=== PATIENT | male | born 1985 | race Caucasian/White ===

== ENCOUNTER 2020-10-06 16:30 | Outpatient (CLI) | payer OTHER, SELFPAY | END 2020-10-06 16:31 | disposition home or self-care (01) | LOC: ANHCOVIDVC 16:30 | PROVIDERS: PCP Emergency Medicine | DX: Z23 Encounter for immunization (principal) | CPT/HCPCS: 0001A; 91300 ==

== ENCOUNTER 2020-10-27 16:28 | Outpatient (CLI) | payer OTHER, SELFPAY | END 2020-10-27 16:29 | disposition home or self-care (01) | LOC: ANHCOVIDVC 16:28 | PROVIDERS: PCP Emergency Medicine | DX: Z23 Encounter for immunization (principal) | CPT/HCPCS: 0002A; 91300 ==

== ENCOUNTER 2021-08-18 17:15 | Emergency (ER) | payer OTHER, SELFPAY ==
[2021-08-18 17:21] VITALS: BP 129/81; RESP 16; TEMP 35.6; O2SAT 100
[2021-08-18 17:23] VITALS: BP 129/81; RESP 16; TEMP 35.6; O2SAT 100
--- NOTE | 2021-08-18 17:24 | ED.URI ---
HPI - URI/Sore Throat General Chief Complaint: Upper Respiratory Infection Stated Complaint: SINUS CONGESTION Time Seen by Provider: 08/18/21 17:24 Source: patient, RN notes reviewed and old records reviewed Mode of arrival: ambulatory Limitations: no limitations History of Present Illness HPI Narrative: 36 year old male presents to [facility] with complaints of sinus congestion, drainage, dry cough and some facial pressure and frontal headache for the past 2 days. He states that he had COVID about a month ago and has recovered with no known residual effects., Patient has been COVID vaccinated but has not had his booster. Patient denies any fevers, chills or sweats, he has been taking Flonase and Mago D for his symptoms with no resolution. Patient states that cough has been slightly productive in the morning.Patient has history of past sinus infections requesting Z-pack. MD elicited complaint: sinus pain Pertinent past history: sinusitis Treatments prior to arrival: other (Flonase and Mago D) Related Data Allergies Allergy/AdvReac Type Severity Reaction Status Date / Time No Known Allergies Allergy Unknown Unverified 06/16/20 13:59 Review of Systems Review of Systems: CONSTITUTIONAL: Denies fever, chills, or sweats. EYES: Denies visual changes, redness, or discharge. ENT: Positive rhinorrhea, congestion, no sore throat, or otalgia, facial pressure. CARDIOVASCULAR: Denies chest pain, palpitations, or edema. RESPIRATORY: Positive for cough no dyspnea. GASTROINTESTINAL: Denies abdominal pain, nausea, vomiting, or diarrhea. GENITOURINARY: Denies dysuria or hematuria. SKIN: Denies rash or itching. MUSCULOSKELETAL: Denies back pain, joint pain, or myalgia. NEUROLOGIC: Positive for headache, no numbness, or weakness. PSYCHIATRIC: Denies anxiety or depression. All systems reviewed & are unremarkable except as noted in HPI and below PMFSH Past Medical History Medical History Viral labyrinthitis Family History Family History Mother Family history of Alzheimer's disease, Onset Age: 62 Social History Social History Smoking status: Never smoker Alcohol intake: never Comments At time of signature, agree with nursing past medical, surgical, social and family history. There is no relevant family history pertinent to the presenting complaint Exam Narrative: GENERAL: Well-appearing, well-nourished, and in no acute distress. HEAD: Normocephalic, atraumatic. EYES: PERRLA and EOMI. ENT: Nares mild redness with clear rhinorrhea no epistaxis. Mucous membranes moist.TM's normal with good light reflex, throat red with no exudates or lesions, no tonsil enlargement, post nasal drainage noted. NECK: Supple.no lymphadenopathy CHEST: Clear to auscultation. No respiratory distress.SAO2 100% on room air. HEART: Regular rate and rhythm. No murmur heard. Normal peripheral pulses. ABDOMEN: Soft, nontender, nondistended, normal active bowel sounds. EXTREMITIES: Normal range of motion. No edema. SKIN: Warm, dry, no rash. NEURO: No focal deficits. Alert and oriented x3. Course Course Level of Care: Express Care Visit Vital Signs Vital signs: Vital Signs Temperature 35.6 C L 08/18/21 17:21 Respiratory Rate 16 08/18/21 17:21 Blood Pressure 129/81 08/18/21 17:21 Pulse Oximetry 100 08/18/21 17:21 Temperature 35.6 C L 08/18/21 17:23 Pulse Rate 57 L 08/18/21 17:26 Respiratory Rate 16 08/18/21 17:23 Blood Pressure 129/81 08/18/21 17:23 Pulse Oximetry 100 08/18/21 17:23 MDM - URI/Sore Throat Differential Diagnosis Differential diagnosis: Likely upper respiratory infection, sinusitis (bacterial), viral infection, influenza and pharyngitis Medical Records Attestation: I reviewed the patient's medical records. Critical Care Time Yana
[2021-08-18 17:26] VITALS: PULSE 57
== END 2021-08-18 17:50 | disposition home or self-care (01) ==
PROVIDERS: Emergency Provider Registered Nurse; PCP Emergency Medicine
DX: J32.9 Chronic sinusitis, unspecified (principal); Z86.16 Personal history of COVID-19
CPT/HCPCS: 99213; G0463

== ENCOUNTER 2024-07-05 17:59 | Emergency (ER) | payer OTHER, SELFPAY ==
[2024-07-05] VITALS (7 sets, daily range): BP systolic 122–137; BP diastolic 66–80; PULSE 60–83; RESP 13–18; TEMP 36.2–36.6; O2SAT 99–100
--- NOTE | ~2024-07-05 | US_ITS ---
EXAMINATION: US venous doppler UE RT DATE: 07/05/2024 18:36 INDICATION: Right upper limb pain. TECHNIQUE: Grayscale ultrasound images without and with compression and Doppler ultrasound images of the right upper extremity veins were obtained. COMPARISON: None. FINDINGS: The visualized portions of the right internal jugular vein, subclavian vein, axillary vein, brachial veins, basilic vein, cephalic vein, radial vein, and ulnar vein are patent. IMPRESSION: 1. No deep venous thrombosis. Reviewed, dictated and finalized at location A. DYER
--- NOTE | ~2024-07-05 | CT_ITS ---
EXAMINATION: CTA chest DATE: 07/05/2024 23:17 INDICATION: Right upper extremity pain. Aortic dissection. TECHNIQUE: Computed tomographic angiography (CTA) of the chest was performed with 100 mL Omnipaque-35 0 intravenous contrast. Automated exposure control and iterative reconstruction technique were employ ed. The dose-length product was 403.32 mGy-cm. Maximum intensity projection 3D-reconstructions of the aorta and other arteries were constructed by the technologist on a separate workstation. COMPARISON: None. FINDINGS: A calcified right lung nodule and calcified right hilar lymph nodes are consistent with old granulomatous disease. No pleural effusion. The heart size is normal. No pericardial effusion. The a brianda is normal in caliber. No aneurysm or dissection. There is no significant stenosis of celiac axis , superior mesenteric artery, or the renal arteries. There is mild thoracic spondylosis. IMPRESSION: 1. Normal aorta. Reviewed, dictated and finalized at location A. [employer] IMPRESSION: 1. Normal aorta.
--- NOTE | ~2024-07-05 | CT_ITS ---
EXAMINATION: CTA [facility] DATE: 07/05/2024 23:17 INDICATION: Upper extremity pain. TECHNIQUE: Computed tomographic angiography (CTA) of the bilateral upper extremities was performed wi th 150 mL Omnipaque-350 intravenous contrast. Automated exposure control and iterative reconstruction technique were employed. The dose-length product was 585.52 mGy-cm. Maximum intensity projection 3D- reconstructions of the arteries were created by the technologist on a separate workstation. COMPARISON: None. FINDINGS: RIGHT UPPER EXTREMITY CTA: There is no significant stenosis of the brachiocephalic trunk, subclavian artery, axillary artery, brachial artery, ulnar artery, or radial artery. LEFT UPPER EXTREMITY CTA: There is no significant stenosis of subclavian artery, axillary artery, bra chial artery, radial artery, or ulnar artery. IMPRESSION: 1. No significant arterial occlusive disease. Reviewed, dictated and finalized at location A. [facility]
--- NOTE | 2024-07-05 20:51 | ECG_ITS ---
Test Date: 2024-07-05 22:05:26 Measurements Intervals [place] Rate: 67 P: 7 MD: 167 QRS: -18 QRSD: 89 T: 28 QT: 382 QTc: 404 Interpretive Statements SINUS RHYTHM POSSIBLE RIGHT VENTRICULAR CONDUCTION DELAY [RSR (QR) IN V1/V2] INFERIOR MYOCARDIAL INFARCTION , PROBABLY OLD [40+ ms Q WAVE AND/OR ST/T ABNORMALITY IN II/aVF] No previous ECG available for comparison Electronically Signed On 07-06-2024 18:35:20 [facility] by Barb Banegas M.D.
[2024-07-05 21:31] LABS: Basophils Absolute Auto 0.1 K/mm3 (0.0-0.1); Basophils Percent Auto 0.9 % (0.2-1.2); Eosinophils Absolute Auto 0.2 K/mm3 (0-0.3); Eosinophils Percent Auto 2.4 % (0-4.4); Hemoglobin 14.1 g/dL (14.0-18.0); Immature Granulocyte Absolute 0.02 K/mm3 (0.00-0.031); Immature Granulocyte Percent A 0.2 % (0-0.5); Lymphocytes Percent Auto 24.7 % (18.3-44.2); Mean Corpuscular HGB Conc 34.4 g/dl (32-36); Mean Corpuscular Hemoglobin 31.2 pg (26-34); Mean Corpuscular Volume 90.7 fl (80-100); Mean Platelet Volume 11.1 fl (7.4-10.4); Monocytes Absolute Auto 0.8 K/mm3 (0.1-0.6); Monocytes Percent Auto 8.9 % (2.6-8.5); Neutrophils Absolute Auto 5.6 K/mm3 (1.3-6.7); Neutrophils Percent Auto 62.9 % (45.5-73.1); Platelet Count Result 228 k/mm3 (150-375); Red Blood Count 4.52 M/mm3 (4.6-6.20); Red Cell Distribution Width 12.4 % (11.5-14.5); White Blood Count 8.9 K/mm3 (4.5-10.0)
[2024-07-05 21:42] LABS: Lactic Acid Reflex 0.9 mmol/L (0.7-2.0)
[2024-07-05 21:43] LABS: Alanine Aminotransferase 20 U/L (6-50); Albumin Level 4.2 g/dL (3.5-5.1); Alkaline Phosphatase 52 U/L (38-126); Anion Gap 4 mmol/L (4-12); Aspartate Amino Transferase 21 U/L (17-59); Bilirubin,Total 0.6 mg/dL (0.2-1.3); Blood Urea Nitrogen 11 mg/dL (9-20); Calcium 9.1 mg/dL (8.4-10.2); Carbon Dioxide 27 mmol/L (22-30); Chloride 105 mmol/L (98-107); Creatine Kinase 69 U/L (55-170); Estimated CRCL calculation 89 ml/min; Estimated Glomerular Filt Rate > 60; Glucose 85 mg/dL (65-110); Magnesium 2.1 mg/dL (1.6-2.3); Potassium 3.7 mmol/L (3.4-5.0); Sodium 136 mmol/L (137-145)
[2024-07-05 21:44] LABS: Prothrombin Time 13.4 Seconds (11.1-14.7)
[2024-07-05 21:45] LABS: Partial Thromboplastin Time 29.9 Seconds (22.3-36.8)
[2024-07-05 21:47] LABS: D Dimer < 0.27 ug/mL (<0.48)
[2024-07-05 21:53] LABS: Troponin I < 0.012 ng/mL (0.000-0.034)
--- NOTE | 2024-07-05 21:55 | ED.EXTPRO ---
HPI - Extremity Problem General Chief complaint: Extremity Problem,Nontraumatic Stated complaint: right elbow pain Time Seen by Provider: 07/05/24 20:34 History of Present Illness HPI Narrative: 39-year-old male with a past medical history significant for vertebral artery dissection and previous CVA secondary to above without any residual deficits. Presents to the emergency department today with a chief complaint of pain and paresthesias in his right upper extremity as well as some vague chest discomfort, nauseousness and feeling diaphoretic at work. Patient states that the cramping pain in his right upper extremity near the elbow and proximal upper extremity feel very similar to the feeling he had in his neck when they found his vertebral artery dissection over a year prior. Patient informs me that he had no trauma that led to the vertebral artery dissection and he was having vague symptoms in the neck for over a month until he had a CT angiography showing the dissection. He was in the ICU at an outside hospital for several weeks and had multiple TIAs/strokes according to him and the at bedside. He has no residual deficits and completed physical therapy and rehabilitation. Does not take any present medications such as aspirin, Plavix or any blood thinners and states that he was previously on the but taken off after repeat evaluations by his primary doctor. Presently is endorsing the chest pain has resolved but states that his right arm is still having some dull aching pain sensations. Denies any difficulty breathing, fever, chills, headache, neck pain, abdominal pain, back pain, trauma or injuries. Was otherwise in his normal state of health, awake alert answering all questions appropriately. Related Data Allergies Allergy/AdvReac Type Severity Reaction Status Date / Time No Known Allergies Allergy Unknown Unverified 06/16/20 13:59 Review of Systems Review of Systems: As reviewed above in HPI [facility] Past Medical History Medical History Viral labyrinthitis Family History Family History Mother Family history of Alzheimer's disease, Onset Age: 62 Social History Social History Smoking status: Never smoker Alcohol intake: never Exam Narrative: GENERAL: [Well-appearing, well-nourished, and in no acute distress.] HEAD: [Normocephalic, atraumatic.] EYES: [PERRLA and EOMI.] ENT: Nares clear, no rhinorrhea or epistaxis. Mucous membranes moist. NECK: Supple. CHEST: [Clear to auscultation. No respiratory distress.] HEART: [Regular rate and rhythm]. No murmur heard. 2+ symmetric radial pulses, 2+ dorsalis pedis pulses, warm and well-perfused extremities ABDOMEN: [Soft, nondistended], [nontender], [No rigidity or guarding] EXTREMITIES: Normal range of motion. [No edema.] SKIN: Warm, dry, no rash. NEURO: [No focal deficits]. Alert and oriented [x3.] Full strength and sensation throughout both arms and legs. No ataxia. 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 Presents to the emergency room today with a sensation of dull aching pain in his right upper extremity that resembles when they found his dissection. Denies any trauma or injuries. States that he has not any blood thinner medications and has been cleared by his doctor and primary care provider previously from the dissection that he sustained. Presently he is awake alert oriented otherwise appears well in any acute distress and he has normal reassuring vital signs with any significant blood pressure elevations, tachycardia, fever, hypoxia. He has strong symmetric pulses in both radial arteries, both ulnar arteries, both brachial arteries. Full range of motion of the arms and legs with full strength and sensation throughout. Breath sounds are clear throughout. Given his significant vascular history a broad workup was indicated including CT angiography of his chest and bilateral upper extremities to see if there is any occlusion, vascular anomalies, AVMs, stenosis or other acute findings. Given his vague chest discomfort nauseousness that have since subsided a cardiac workup was also ordered including a chest x-ray, EKG, troponin, CPK. Patient's pain has resolved without any pain medications while in triage. Previous triage provider did order an ultrasound of his right upper extremity. Workup reveals no leukocytosis or anemia. Coagulation panel within normal limits, negative D-dimer. Electrolytes all within normal limits, normal renal function panel, negative CPK, negative lactic acid, normal glucose, normal LFTs. Negative troponin. Patient's imaging studies were all independently reviewed and also interpreted by myself and radiology. The DVT study shows no evidence of a DVT or thrombophlebitis in his right upper extremity. Angiography read by radiology shows a normal aorta and no significant arterial occlusive disease in either arm. I reviewed I relayed the patient's imaging studies back to him in the family members and they were very appreciative of the workup, had resolution of his symptoms while here in the emergency department and has a PCP that he can have close outpatient follow-up with. Patient was given strict return precautions including recurrence of his pain or develops any new symptoms such as recurrent chest pain, difficulty breathing, nausea vomiting or any other concerns and they were stable for discharge home at this time. Lab Data 07/05/24 21:25 07/05/24 21:25 Labs: Lab Results 07/05/24 07/05/24 Range/Units 21:25 21:26 WBC 8.9 (4.5-10.0) K/mm3 RBC 4.52 L (4.6-6.20) M/mm3 Hgb 14.1 (14.0-18.0) g/dL Hct 41.0 L (42.0-52.0) % MCV 90.7 (80-100) fl MCH 31.2 (26-34) pg MCHC 34.4 (32-36) g/dl RDW 12.4 (11.5-14.5) % Plt Count 228 (150-375) k/mm3 MPV 11.1 H (7.4-10.4) fl Immature Gran % (Auto) 0.2 (0-0.5) % Neut % (Auto) 62.9 (45.5-73.1) % Lymph % (Auto) 24.7 (18.3-44.2) % [place] % (Auto) 8.9 H (2.6-8.5) % Eos % (Auto) 2.4 (0-4.4) % Baso % (Auto) 0.9 (0.2-1.2) % Lymph # (Auto) 2.20 (0.9-3.2) K/mm3 [place] # (Auto) 0.8 H (0.1-0.6) K/mm3 Eos # (Auto) 0.2 (0-0.3) K/mm3 Baso # (Auto) 0.1 (0.0-0.1) K/mm3 Abs Immat Gran (auto) 0.02 (0.00-0.031) K/mm3 Absolute Neuts (auto) 5.6 (1.3-6.7) K/mm3 Absolute Nucleated RBC 0.000 (0.0-0.012) K/mm3 Nucleated RBC % 0.0 (0.0-0.2) % PT 13.4 (11.1-14.7) Seconds INR 1.0 APTT 29.9 (22.3-36.8) Seconds D-Dimer < 0.27 (<0.48) ug/mL Sodium 136 L (137-145) mmol/L Potassium 3.7 (3.4-5.0) mmol/L Chloride 105 (98-107) mmol/L Carbon Dioxide 27 (22-30) mmol/L Anion Gap 4 (4-12) mmol/L BUN 11 (9-20) mg/dL Creatinine 1.00 (0.7-1.3) mg/dL Estim Creat Clear Calc 89 ml/min Estimated GFR > 60 (59 - ) Glucose 85 (65-110) mg/dL Lactic Acid 0.9 (0.7-2.0) mmol/L Calcium 9.1 (8.4-10.2) mg/dL Magnesium 2.1 (1.6-2.3) mg/dL Total Bilirubin 0.6 (0.2-1.3) mg/dL AST 21 (17-59) U/L ALT 20 (6-50) U/L Alkaline Phosphatase 52 (38-126) U/L Total Creatine Kinase 69 (55-170) U/L Troponin I < 0.012 (0.000-0.034) ng/mL Total Protein 7.0 (6.3-8.2) g/dL Albumin 4.2 (3.5-5.1) g/dL ECG Data EKG #1: Attestation EKG: I personally reviewed and interpreted this ECG as follows: ECG completion date: 07/05/24 ECG completion time: 22:05 Prior ECG tracings: not available for review Interpretation: Regular rate rhythm an axis, no ST segment elevations, depressions or inversions. No ectopy. QTC of 4 4, QRS 89, [place] interval 167. Good R-wave progression throughout the lateral leads. No previous EKG for comparison overall normal sinus rhythm. Discharge Plan Discharge Clinical Impression: History of arterial dissection, Arm pain, right Patient Disposition: Home, Self-Care Condition: Stable Instructions: Antibiotic Form, Paresthesia (ED), Arm Pain (ED) Additional Instructions: Your laboratory studies and imaging results are very reassuring, the angiography studies that we did of your entire thorax and upper extremities was clean without any stenosis, aneurysms, dissections or anything that appears to be causing damage her potentially could cause stable down the road. Given your history I believe you can safely be followed up with with your primary care provider on outpatient basis and to see if they want to do any additional testing for hypercoagulability disorders however no current concerns from our end. If you have any recurrence of symptoms or anything new or worsening at any time feel free to get repeat evaluation any time. Patient Language: Telugu Prescriptions: No Action azithromycin [Zithromax] 250 mg tablet See Rx Instructions .ROUTE .COMPLEX Qty: 6 0RF Rx Instructions: For 250 mg dose pack: take 500 mg today (day 1), then 250 mg for 4 days (days 2-5) fluticasone propionate [Flonase Allergy Relief] 50 mcg/actuation spray,suspension 1 spray intranasal BID Qty: 16 1RF Rx Instructions: administer into each nostril Follow-up/Referrals: Caleb Nails MD [Primary Care Provider] - Time of Disposition: 23:40
== END 2024-07-05 23:52 | disposition home or self-care (01) ==
PROVIDERS: Emergency Provider Student in an Organized Health Care Education/Training Program; PCP Emergency Medicine
DX: M79.601 Pain in right arm (principal); Z86.79 Personal history of other diseases of the circulatory system; Z86.73 Personal history of transient ischemic attack (TIA), and cerebral infarction without residual deficits
CPT/HCPCS: 36415; 71275; 73206; 80053; 82550; 83605; 83735; 84484; 85025; 85380; 85610; 85730; 93005; 93971; 99284; Q9967